=== PATIENT | female | born 1970 | race Caucasian/White ===

== ENCOUNTER → 2018-01-04 | Emergency (ER) | payer OTHER ==
[~2018-01-04] MED LIST: GLIPIZIDE10 MG; LANTUS SOL100 UNIT/1 SUBCUTANEO; LEVAQUIN750 MG PO; LIPITOR20 MG; LIPITOR20 MG PO; LISINOPRIL10 MG PO; METFORMIN HCL1000 MG PO; PRINIVIL5 MG; RANITIDINE HCL300 MG; RANITIDINE HCL300 MG PO
== END | disposition left against medical advice (07) ==
LOC: ER 17:24
DX: Z53.21 Procedure and treatment not carried out due to patient leaving prior to being seen by health care provider (principal)

== ENCOUNTER 2018-01-05 02:17 | Inpatient (IN) | payer OTHER ==
[~2018-01-05] VITALS: Ht 160 cm; Wt 68.5 kg
[2018-01-05] MEDS ORDERED: METFORMIN HCL1000 MG PO (15:55)
[2018-01-05] MEDS ORDERED: LIPITOR20 MG (15:56)
[2018-01-05] MEDS ORDERED: PRINIVIL5 MG (15:57)
[2018-01-05] MEDS ORDERED: RANITIDINE HCL300 MG (15:57)
[2018-01-05] MEDS ORDERED: GLIPIZIDE10 MG (15:57)
[2018-01-10] MEDS ORDERED: RANITIDINE HCL300 MG PO (15:09)
[2018-01-10] MEDS ORDERED: LIPITOR20 MG PO (15:09)
[2018-01-10] MEDS ORDERED: LANTUS SOL100 UNIT/1 SUBCUTANEO (15:09)
[2018-01-10] MEDS ORDERED: LISINOPRIL10 MG PO (15:09)
[2018-01-10] MEDS ORDERED: LEVAQUIN750 MG PO (15:09)
== END 2018-01-10 17:44 | disposition home or self-care (01) | DRG 623 ==
LOC: ER 02:17 → MEDJ 16:17 → SEC-K 16:17 → MEDJ 01-06 16:21
PROC: 8E0ZXY6 Isolation (ICD-10-PCS; 2018-01-05)
PROC: BQ3LZZZ Magnetic Resonance Imaging (MRI) of Right Foot (ICD-10-PCS; 2018-01-06)
PROC: 0JBQ0ZZ Excision of Right Foot Subcutaneous Tissue and Fascia, Open Approach (ICD-10-PCS; principal; 2018-01-07)
DX: E11.621 Type 2 diabetes mellitus with foot ulcer (principal); L97.518 Non-pressure chronic ulcer of other part of right foot with other specified severity; L02.611 Cutaneous abscess of right foot; E11.65 Type 2 diabetes mellitus with hyperglycemia; I10 Essential (primary) hypertension; B95.1 Streptococcus, group B, as the cause of diseases classified elsewhere; B95.61 Methicillin susceptible Staphylococcus aureus infection as the cause of diseases classified elsewhere
CPT/HCPCS: 73221